=== PATIENT | female | born 1940 ===

== ENCOUNTER 2016-12-01 20:03 | Inpatient (IN) ==
[2016-12-01] MEDS ORDERED: ONDANSETRON 4 MG/2 ML VIAL IV PRN (23:57)
[2016-12-01] MEDS ORDERED: MORPHINE 2 MG/1 ML SYRINGE IV PRN (23:57)
[2016-12-02] MEDS: LISINOPRIL 20 MG TABLET PO SCH ×3 (00:21→21:10)
[2016-12-02] MEDS: SODIUM CHLORIDE 0.9% 1,000 ML IV SCH ×2 (00:21→14:16)
[2016-12-02] MEDS: SIMVASTATIN 40 MG TABLET PO SCH ×2 (00:22→21:10)
[2016-12-02] MEDS: CARVEDILOL 6.25 MG TABLET PO SCH ×3 (00:22→17:12)
[2016-12-02] MEDS ORDERED: hydrALAZINE 20 MG/1 ML VIAL IV PRN (00:33)
[2016-12-02 01:09] LABS: Basophils % 0.6 % (0.0-0.8); Eosinophils # 0.2 10*3/uL (0.0-0.87); Eosinophils % 2.4 % (0.00-10.9); Hematocrit 36.2 VOL% (35.7-47.0); Immature Granulocytes % 0.2 %; Immature Granulocytes Absolute 0.01 #; Lymphocytes # 1.9 10*3/uL (1.4-4.0); Mean Corpuscular HGB Conc 35.9 GM/DL (32-36); Mean Corpuscular Hemoglobin 32 PG (27-34); Mean Corpuscular Volume 88.1 FL (87-102); Mean Platelet Volume 9.9 FL (9.6-12.0); Monocytes # 0.8 10*3/uL (0.11-0.8); Monocytes % 12.7 % (1.7-12.7); Neutrophils # 3.6 10*3/uL (1.4-7.4); Neutrophils % 55.1 % (38.7-73.9); Platelet Count 216 T/CUMM (130-400); Red Blood Count 4.11 MC/CUMM (3.8-5.5); White Blood Count 6.6 T/CUMM (4-12)
[2016-12-02 01:26] LABS: Alanine Aminotransferase 21 U/L (13-56); Albumin 3.3 G/DL (3.4-5.0); Alkaline Phosphatase 123 U/L (45-117); Aspartate Amino Transferase 13 U/L (0-37); Bilirubin,Total < 0.39 MG/DL (0.2-1.0); Blood Urea Nitrogen 21 MG/DL (7-18); Calcium 8.5 MG/DL (8.5-10.1); Cholesterol 155 MG/DL (50-200); Glucose 158 MG/DL (74-106); HDL Cholesterol 48 MG/DL (40-60); Magnesium 1.9 MG/DL (1.8-2.4); Osmolality,Calculated 286.3 MOS/KG (273-304); Potassium 3.3 MMOL/L (3.5-5.1); Risk Ratio 3.23; Sodium 141 MMOL/L (136-145); Total Protein 7.3 G/DL (6.4-8.3); Triglycerides 78 MG/DL (2-150); VLDL CHOLESTEROL 15.6 MG/DL
[2016-12-02 04:34] LABS: Apearance,Urine CLEAR (Clear); Bilirubin,Urine Negative (Negative); Blood, Urine Small mg/dL (Negative); Glucose,Urine (UA) Negative (Negative); Ketones,Urine Negative (Negative); Nitrite,Urine Negative (Negative); Protein,Urine Negative; RBC,Urine 1 /HPF (0-4); Squamous Epithelial Cell,Urine Occasional /HPF (0-10); Urine Color Straw (Yellow); Urine Specific Gravity 1.008 (1.001-1.035); Urine Urobilinogen < 2.0 EU/DL (0.2-1.0); WBC,Urine <1 /HPF (0-6)
[2016-12-02] MEDS: DOCUSATE SODIUM 100 MG CAPSULE PO SCH ×2 (09:00→21:10)
[2016-12-02] MEDS: ASPIRIN EC 81 MG TABLET PO SCH (09:00)
[2016-12-02] MEDS: PANTOPRAZOLE 40 MG TABLET PO SCH (09:00)
[2016-12-02] MEDS: ENOXAPARIN 40 MG/0.4 ML SYRINGE SUBCUT SCH (09:00)
[2016-12-02] MEDS ORDERED: MAGNESIUM CITRATE 300 ML BOTTLE PO ONE (10:00)
[2016-12-02] MEDS ORDERED: POTASSIUM CHLORIDE RIDER 10 MEQ in PREMIX 1 EACH IV ONE (14:56)
[2016-12-02] MEDS ORDERED: POTASSIUM CHLORIDE 20 MEQ TABLET PO ONE (14:58)
[2016-12-03] MEDS: SODIUM CHLORIDE 0.9% 1,000 ML IV SCH ×2 (08:47→15:40)
[2016-12-03] MEDS: CARVEDILOL 6.25 MG TABLET PO SCH (08:52)
[2016-12-03] MEDS: ASPIRIN EC 81 MG TABLET PO SCH (08:53)
[2016-12-03] MEDS: DOCUSATE SODIUM 100 MG CAPSULE PO SCH (08:53)
[2016-12-03] MEDS: PANTOPRAZOLE 40 MG TABLET PO SCH (08:53)
[2016-12-03] MEDS: LISINOPRIL 20 MG TABLET PO SCH (08:53)
[2016-12-03] MEDS: ENOXAPARIN 40 MG/0.4 ML SYRINGE SUBCUT SCH (08:54)
[2016-12-03] MEDS ORDERED: POLYETHYLENE GLYCOL POWDER 17 GM PACK PO SCH (09:00)
[2016-12-03 16:25] VITALS: BP 149/95
== END 2016-12-03 18:30 | disposition home or self-care (01) | DRG 392 ==
LOC: N.5E 22:14 → SUATTDRO 22:14
PROVIDERS: ADMIT Internal Medicine; ATTEND Internal Medicine